=== PATIENT | female | born 1935 | race Caucasian/White ===

== ENCOUNTER 2017-01-13 14:02 | Emergency (ER) | payer MEDICARE, OTHER ==
[~2017-01-13] VITALS: Ht 157.5 cm; Wt 70.0 kg
[~2017-01-13 14:02] MED LIST: LEVO75TA5; NITR-53; NYQUIL; ZOLP10TA5
[2017-01-13 14:12] VITALS: Ht 157.5 cm; Wt 70.0 kg
[2017-01-13] MEDS ORDERED: morphine 4 MG/ML VIAL IM STA (14:51)
--- NOTE | 2017-01-13 16:47 | RADRPT ---
PROCEDURE: Left hip series CLINICAL INDICATION: Left hip pain TECHNIQUE: AP and frog-leg lateral views of the left hip are submitted COMPARISON: None FINDINGS: The left hip appears aligned without evidence of fractures, dislocations or osteolytic lesions. Boni tabulum appears intact.. IMPRESSION: Normal RPTAT: GG .Vamsi Sheikh MD, Date Time Electronically viewed and signed by .Vamsi Sheikh MD, on 01/13/2017 16:47 .L/
--- NOTE | 2017-01-13 16:48 | RADRPT ---
PROCEDURE: XR Femur. CLINICAL INDICATION: Pain. TECHNIQUE: AP and lateral views of the left femur were obtained. COMPARISON: No prior studies are available for comparison. FINDINGS: There is normal mineralization and alignment. No fracture or osseous lesion is identified. There are normal joints without evidence of arthritis or effusion. The soft tissues are unremarkable. IMPRESSION: 1. Unremarkable left femur x-ray series. RPTAT: GG .Vamsi Sheikh MD, MD Date Time Electronically viewed and signed by .Vamsi Sheikh MD, on 01/13/2017 16:48 .L/
--- NOTE | 2017-01-13 16:50 | RADRPT ---
PROCEDURE: XR Knee. CLINICAL INDICATION: Left knee pain. TECHNIQUE: AP, lateral, and oblique views of the left knee are available for review. COMPARISON: None available FINDINGS: there is mild osteoarthritic changes most notable at the patellofemoral compartment with subchondral cystic changes at the posterior patella. . No acute fracture or dislocation is seen. No radiopaqu e foreign body is identified. Alignment is anatomic. No joint effusion is seen. IMPRESSION: 1. Mild osteoarthritis most notable at the patellofemoral compartment. 2. No acute fracture or dislocation is seen. RPTAT: GG .Vamsi Sheikh MD, Date Time Electronically viewed and signed by .Vamsi Sheikh MD, on 01/13/2017 16:49 .L/
[2017-01-13] MEDS ORDERED: IBUPROFEN 800 MG TAB PO ONE (17:00)
[2017-01-13] MEDS ORDERED: NAPR-260 PO (17:11)
--- NOTE | 2017-01-13 17:11 | ERD ---
ER Documentation Chief Complaint Chief Complaint BIB [facility] FOR LEFT HIP LEG PAIN. CMS INTACT. DENIES ANY INJURY HPI This is an 81-year-old female who presents to the ER for evaluation of left hip and left knee pain. She denies any injury, denies any falls and states that she has had this pain for the past 5 days. The patient denies any fevers associated with this, she denies any numbness or tingling in her extremities and has not taken any medication for it. She came to the ER today for evaluation of her symptoms. ROS All systems reviewed and are negative except as per history of present illness. Medications Home Meds Reported Medications Zolpidem Tartrate* (Zolpidem Tartrate*) 10 Mg Tablet 07/29/09 Levothyroxine Sodium* (Levothyroxine Sodium*) 75 Mcg Tablet 07/29/09 Nitrofurantoin Macrocrystal (Nitrofurantoin) 100 Mg Capsule 07/29/09 Nyquil 07/29/09 Allergies Allergies: Coded Allergies: No Known Drug Allergies (Verified Allergy, Mild, 10/13/13) PMhx/Soc History of Surgery: No Anesthesia Reaction: No Hx Neurological Disorder: No Hx Respiratory Disorders: No Hx Cardiac Disorders: Yes (htn) Hx Psychiatric Problems: No Hx Miscellaneous Medical Probl: No Hx Alcohol Use: No Hx Substance Use: No Hx Tobacco Use: No Smoking Status: Never smoker Physical Exam Vitals Vital Signs Date Time Temp Pulse Resp B/P Pulse Ox O2 Delivery O2 Flow Rate FiO2 01/13/17 14:12 98.3 80 18 157/69 99 Physical Exam Const: No acute distress Head: Atraumatic Eyes: Normal Conjunctiva ENT: Normal External Ears, Nose and Mouth. Neck: Full range of motion..~ No meningismus. Resp: Clear to auscultation bilaterally Cardio: Regular rate and rhythm, no murmurs Abd: Soft, non tender, non distended. Normal bowel sounds Skin: No petechiae or rashes Back: No midline or flank tenderness Ext: Tender to palpation over left patella, no effusion palpated, no cyanosis , or edema, palpable dorsalis pedis and posterior tibial pulse bilaterally Neur: Awake and alert Psych: Normal Mood and Affect Results 24 hrs Current Medications Medications (Trade) Dose Ordered Sig/Dianne Route PRN Reason Start Time Stop Time Status Last Admin Dose Admin Morphine Sulfate (morphine) 4 mg ONCE STAT IM 10/27/17 14:51 01/13/17 14:52 DC 01/13/17 15:02 Ibuprofen (Motrin) 800 mg ONCE ONCE PO 01/13/17 17:00 01/13/17 17:01 DC 01/13/17 17:00 Procedures/MDM X-ray Hip 2V Interpreted by me: Bones: [No fracture] Joints: [No dislocation] Foreign body: [None] X-ray Femur 2V Interpreted by me: Bones: [No fracture] Joints: [No dislocation] Foreign body: [None] X-ray Knee 3V Interpreted by me: Bones: [No fracture] Joints: [No dislocation] Foreign body: [None] This 81-year-old female presents to the ER for nontraumatic left lower extremity pain. When I evaluated this patient she had minor tenderness to palpation around the left knee. She was initially given morphine. X-rays were obtained to rule out any fractures and the x-rays of the hip, femur, and knee were obtained which does not show any sign of fracture. The patient was given Motrin due to the fact that her x-ray does read arthritis of the knee. The patient will be discharged at this time with a prescription for Naprosyn at this time. The patient and the patient's family members are comfortable with her plan of care for discharge at this time. The patient does say she is feeling better at this time, I doubt DVT she has no calf tenderness and no swelling. Departure Diagnosis: Primary Impression: Pain of left leg Additional Impression: Arthritis of left knee Condition: Stable YANDEL HOLCOMB DO Jan 13, 2017 17:11
[2017-01-13 17:27] VITALS: BP 174/82; PULSE 65; RESP 18
== END 2017-01-13 17:37 | disposition home or self-care (01) ==
LOC: E/R 14:02
DX: M17.9 Osteoarthritis of knee, unspecified (principal); I10 Essential (primary) hypertension
CPT/HCPCS: 73510; 73550; 73562; 96372; 99284; J2270

== ENCOUNTER 2017-02-27 19:26 | Emergency (ER) | payer MEDICARE, OTHER ==
[~2017-02-27] VITALS: Ht 152.4 cm; Wt 54.5 kg
[~2017-02-27 19:26] MED LIST changes: +NAPR-260 PO
[2017-02-27 19:33] VITALS: Ht 152.4 cm; Wt 54.5 kg
[2017-02-27] MEDS ORDERED: morphine 2 MG INJ IM STA (19:36)
[2017-02-27] MEDS ORDERED: ONDANSETRON (ODT) 4 MG TAB ODT STA (19:36)
--- NOTE | 2017-02-27 19:42 | ERD ---
ER Documentation Chief Complaint Chief Complaint CAROLINE [id number],BACK OF HEAD LAC,S/P FALL,LOWER BACK PAIN HPI This is an 81-year-old female with a history of osteoporosis arthritis hypertension and hypothyroidism who presents to the emergency department after she had a witnessed mechanical trip and fall just prior to arrival. The patient had been walking in her bedroom when she accidentally slipped on an article of clothing and hit the back of her head and lower back on a carpeted surface. A family member had witnessed the fall and indicated that the patient also had to hit the back of her head on the bedpost during the fall. The patient is complaining of mild headache. There was bleeding from the scalp but EMS indicated hemostasis had been controlled. The patient was not complaining of neck pain. She denies any fever shaking or chills. She is complaining of pain in her lower back which she states is exacerbated when she attempted to ambulate. She denies any pain of her upper extremities. She denies any pleuritic chest pain or pressure. She has no shortness of breath. She takes [place] for analgesia control not take any medications prior to arrival. ROS All systems reviewed and are negative except as per history of present illness. Medications Home Meds Reported Medications Gabapentin* (Gabapentin*) 100 Mg Capsule, 200 MG PO TID, #180 CAP 02/27/17 Hydrocodone/Acetaminophen ([place] 10-325 Tablet) 1 Each Tablet, 1 EACH PO Q6H, TAB 02/27/17 Mirtazapine* (Mirtazapine*) 15 Mg Tablet, 15 MG PO HS, TAB 02/27/17 Atenolol* (Atenolol*) 25 Mg Tablet, 25 MG PO DAILY, #30 TAB 02/27/17 Benazepril Hcl* (Benazepril Hcl*) 20 Mg Tablet, 20 MG PO DAILY, #30 TAB 02/27/17 Temazepam* (Temazepam*) 30 Mg Capsule, 30 MG PO HS Y for INSOMNIA, CAP 02/27/17 Levothyroxine Sodium* (Levothyroxine Sodium*) 75 Mcg Tablet, 75 MCG PO BEFORE BREAKFAST, #30 TAB 02/27/17 Discontinued Reported Medications Zolpidem Tartrate* (Zolpidem Tartrate*) 10 Mg Tablet 07/29/09 Levothyroxine Sodium* (Levothyroxine Sodium*) 75 Mcg Tablet 07/29/09 Nitrofurantoin Macrocrystal (Nitrofurantoin) 100 Mg Capsule 07/29/09 Nyquil 07/29/09 Discontinued Scripts Naproxen* (Naprosyn*) 500 Mg Tablet, 500 MG PO BID Y for PAIN AND/OR INFLAMMATION, #20 TAB Prov:YANDEL HOLCOMB DO 01/13/17 Allergies Allergies: Coded Allergies: No Known Drug Allergies (Verified Allergy, Mild, 02/27/17) PMhx/Soc History of Surgery: No Anesthesia Reaction: No Hx Neurological Disorder: No Hx Respiratory Disorders: No Hx Cardiac Disorders: Yes (htn) Hx Psychiatric Problems: No Hx Miscellaneous Medical Probl: No Hx Alcohol Use: No Hx Substance Use: No Hx Tobacco Use: No Physical Exam Vitals Vital Signs Date Time Temp Pulse Resp B/P Pulse Ox O2 Delivery O2 Flow Rate FiO2 02/27/17 21:45 98.6 70 16 147/70 95 Room Air 02/27/17 19:47 98.6 75 16 144/82 94 Room Air 02/27/17 19:33 98.6 89 18 149/94 99 Physical Exam Constitutional:Well-developed. Well-nourished. HEENT:Normocephalic. Right occipital scalp hematoma with overlying superficial abrasion 2 cm linear laceration with no involvement of the calvarium overlying the scalp hematoma. No nasal septal hematoma..Pupils were equal round reactive to light. Moist mucous membranes.No tonsillar exudates. Neck: No nuchal rigidity. No lymphadenopathy. Your cervical spine tenderness over C3-C4 with no step-offs. Respiratory: Not using accessory muscles of respiration.Lungs are clear to auscultation in the left lobe however decreased breath sounds in the right upper lobe. No rhonchi. No rales. No wheezing. Cardiovascular: Regular rate regular rhythm.No murmurs. No rubs were appreciated.S1, S2 normal. Distal pulses are palpable 2+ bilaterally. No Crepitus. No flail chest. No ecchymosis or tenderness over the right lateral chest wall. GI: Abdomen was soft. Nontender. Non Distended. No pulsatile abdominal masses or bruits. No rebound. No guarding. Bowel sounds were present and normal. Muscle skeletal: Full range of motion of both the upper and lower extremities bilaterally.Normal muscle tone.No assymetrical calf tenderness or swelling. Lower extremities are equal length and symmetrical with no internal or external rotation. Tenderness over L4-L5 with percussion. Skin: No petechia, no purpura. No lesions on the palms or the soles of the feet. No maculopapular rash. NEURO: Patient was alert, awake, orientated x3.No facial droop. Gait not observed as patient refused to ambulate.Speech had regular rate and rhythm. No focal neurological deficits. Result Diagram: 02/27/172145 Results 24 hrs Laboratory Tests Test 02/27/17 21:46 White Blood Count 9.210^3/ul Red Blood Count 3.4110^6/ul Hemoglobin 10.2g/dl Hematocrit 30.8% Mean Corpuscular Volume 90.3fl Mean Corpuscular Hemoglobin 29.9pg Mean Corpuscular Hemoglobin Concent 33.1g/dl Red Cell Distribution Width 12.4% Platelet Count 72303^3/UL Mean Platelet Volume 9.3fl Neutrophils % 80.4% Lymphocytes % 11.7% Monocytes % 5.3% Eosinophils % 1.1% Basophils % 0.8% Nucleated Red Blood Cells % 0.0/100WBC Neutrophils # 7.410^3/ul Lymphocytes # 1.110^3/ul Monocytes # 0.510^3/ul Eosinophils # 0.110^3/ul Basophils # 0.110^3/ul Nucleated Red Blood Cells # 0.010^3/ul Current Medications Medications (Trade) Dose Ordered Sig/Dianne Route PRN Reason Start Time Stop Time Status Last Admin Dose Admin Diphtheria/ Tetanus/Acell Pertussis (Adacel) 0.5 ml ONCE ONCE IM* 02/27/17 20:00 02/27/17 20:01 DC 02/27/17 20:56 Morphine Sulfate (morphine) 2 mg ONCE STAT IM 02/27/17 19:36 02/27/17 19:39 DC 02/27/17 20:54 Ondansetron HCl 4 mg 4 mg ONCE STAT ODT 02/27/17 19:36 02/27/17 19:39 DC 02/27/17 20:53 Sodium Chloride (NS) 500 ml @ 500 mls/hr Q1H STAT IV 02/27/17 21:21 02/27/17 22:20 DC 02/27/17 22:19 Procedures/MDM Patient presented to the emergency department with blunt head trauma and chest trauma. 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 There is an associated compression fracture of the L3 vertebral body with up to 40% retropulsion and soft tissue involvement extending into the anterior spinal canal there is likely severe associated central canal stenosis. I spoke with the patient's daughter and she did indicate that the patient has a history of osteoarthritis and believe she has a known lumbar fracture. However there is no previous documentation to indicate this and therefore I cannot rule out an acute spinal fracture. Immediately upon arrival had been placed in C-spine precautions. Utilizing the Nexus criteria radiographic imaging was obtained of the patient's cervical spine and there is no evidence of fractures. Therefore at this time the cervical collar was removed by myself. Vision had decreased breath sounds heard in the right lung on auscultation. Therefore obtained a chest radiograph which showed patchy infiltrates on the right side and given the patient's setting of trauma I could not rule out pulmonary contusions versus a hemorrhage. This appeared to be less likely a result of pneumonia as the patient did not have a fever and has not had any recent sick contacts and denied a productive or nonproductive cough. The patient had a 2 cm laceration over the scalp hematoma. There is no involvement of the calvarium. The wound was irrigated using high-pressure normal saline. The wound was opposed using 2 clara. The patient tolerated the procedure well. 1% lidocaine without epinephrine had been used to anesthetize the wound and a total of 3 cc. Wound length after repair was still 2 cm. Topical antimicrobial gel been bacitracin was applied to the wound as well as a dry dressing to scalp. Patient been placed in a student officer continuous pulse oximetry and IV access had been established upon arrival. She received intravenous morphine and Zofran for analgesia control. The patient was given a liter bolus of 0.9 normal saline. She was also given a tetanus toxoid update. The patient will require transfer for higher level of care to the trauma facility due to the blunt chest trauma and pulmonary contusions versus hemorrhage. The patient showed no evidence of hypoxia. This information was relayed to the family. 12 Lead EKG tracing ordered and reviewed by myself showed: Normal sinus rhythm of 70 bpm and no arrhythmia. MI interval normal. QRS duration normal. No ST segment elevation No ST segment depression. No changes consistent with acute ischemia. Critical Care: Time: 60 minutes Treatments/Evaluations: Close monitoring and treatment of unstable vital signs, cardiorespiratory, and neurologic status, while maintaining tight balance of fluid, respiratory, and cardiac interventions. Time does not include performing any of the above billable procedures. Departure Diagnosis: Primary Impression: Fall with significant injury Encounter type: initial encounter Qualified Code: W19.XXXA - Fall with significant injury, initial encounter Additional Impressions: Right pulmonary contusion Encounter type: initial encounter Qualified Code: S27.321A - Contusion of right lung, initial encounter Lumbar compression fracture Encounter type: initial encounter Lumbar vertebra fracture level: L3 Fracture type: closed Qualified Code: S32.030A - Closed compression fracture of third lumbar vertebra, initial encounter Occipital scalp laceration Encounter type: initial encounter Qualified Code: S01.01XA - Laceration of occipital scalp, initial encounter Condition: Serious SHAISTA GAN Feb 27, 2017 19:42
[2017-02-27] MEDS ORDERED: DIPHTH/TET/ACEL PERTUSS (ADULT) 0.5 ML VIAL IM* ONE (20:00)
--- NOTE | 2017-02-27 20:32 | RADRPT ---
PROCEDURE: CT Brain without contrast. CLINICAL INDICATION: Trauma TECHNIQUE: A CT of the brain was performed on a multidetector CT scanner utilizing axial imaging f rom the skull base through the vertex without IV contrast. Multiplanar reformatted images were made . Images were reviewed on a PACS workstation. The CTDIvol is 45 mGy and the DLP is 810 mGycm. DICOM images are available. One or more of the following dose reduction techniques were utilized: 1.) Automated exposure control 2.) Adjustment of the mA +/- kV according to patient's size 3.) Use of iterative reconstruction technique. COMPARISON: None FINDINGS: There is mild to moderate age appropriate diffuse cerebral volume loss with sulcal and ventricular d ilatation. No discrete extra-axial fluid collection or masses present. The ventricles are in the mid line and of normal contour and configuration. There is mild white matter disease compatible with chr onic small vessel ischemia. There is no associated mass effect. There is preservation of normal blank -white discrimination. There is no skull fracture. Debris is present in the sphenoid sinus. IMPRESSION: Mild white matter disease compatible with chronic small vessel via. No intracranial hemorrhage or sk ull fracture. .Connor Miller MD, MD Date Time Electronically viewed and signed by .Connor Miller MD, on 02/27/2017 20:32 .A/
--- NOTE | 2017-02-27 20:54 | RADRPT ---
PROCEDURE: CT Cervical Spine without contrast. CLINICAL INDICATION: Trauma TECHNIQUE: A CT of the cervical spine was performed on a multidetector CT scanner utilizing thin s ection axial images from the skull base through the thoracic inlet. Sagittal and coronal reformatte d images were made. The CTDIvol is 22 mGy and the DLP is 468 mGycm. DICOM images are available. One or more of the following dose reduction techniques were utilized: 1.) Automated exposure control 2.) Adjustment of the mA +/- kV according to patient's size 3.) Use of iterative reconstruction technique. COMPARISON: None FINDINGS: There is 3 mm retrolisthesis of C4 on C5. There is otherwise anatomic alignment spine. Vertebral bod ies have normal height. No fracture is visualized. There is mild narrowing of C5-C6 with vacuum phen omenon. The disc heights are maintained. There is mild bilateral C5-C6 foraminal stenosis secondary to uncinate process osteophytes. No other central or foraminal stenosis is present. Pedicles and pos terior elements are without fracture. Noted is a 2 mm central disc herniation at C3-C4. IMPRESSION: No fracture or step-off. Minimal retrolisthesis V4-C5. C5-C6 degenerative disc disease with vacuum phenomenon and mild bilateral foraminal stenosis. 2 mm central disc herniation C3-C4 . .Connor Miller MD, Date Time Electronically viewed and signed by .Connor Miller MD, on 02/27/2017 20:53 .A/
--- NOTE | 2017-02-27 20:58 | RADRPT ---
PROCEDURE: AP pelvis CLINICAL INDICATION: Pain status post trauma TECHNIQUE: AP pelvis COMPARISON: None available FINDINGS: Mild dextroscoliosis of the lumbar spine is present. No acute fractures or dislocations are present. The bilateral sacroiliac joints and the imaged iliac wings are normal. IMPRESSION: 1. No acute fractures or dislocations. RPTAT: HDC .Melanie Cuellar MD, Date Time Electronically viewed and signed by .Melanie Cuellar MD, on 02/27/2017 20:58 .C/
--- NOTE | 2017-02-27 20:59 | RADRPT ---
PROCEDURE: XR Chest. CLINICAL INDICATION: Trauma. TECHNIQUE: 2 frontal views of the chest. COMPARISON: Chest radiograph dated May 17, 2007. FINDINGS: The heart is within the upper limits of normal in size. There are patchy right lung opacities. No pleural effusions pneumothorax. The bones are osteopenic. Degenerative changes of the spine are present. IMPRESSION: 1. Patchy right lung opacities likely representing pulmonary contusions/hemorrhage in the setting o f trauma. Alternatively, this may represent pneumonia. RPTAT:AAJJ Carlos Randle Physician Date Time Electronically viewed and signed by Carlos Randle Physician on 02/27/2017 20:58 QL/
--- NOTE | 2017-02-27 21:07 | RADRPT ---
PROCEDURE: CT Lumbar Spine. CLINICAL INDICATION: Fall, pain TECHNIQUE: Continuous axial CT images were obtained. Sagittal and coronal reformations were creat ed from the raw axial data. The images were reviewed on a PACS workstation. The calculated radiatio n dose measures 267 mGy centimeters. The CTDI measures 10 mGy One or more of the following dose reduction techniques were used: Automated exposure control. Adjustment of the mA and/or kV according to patient size. Use of iterative reconstruction technique. COMPARISON: none FINDINGS: There are bony destructive changes involving the L3 vertebral body posteriorly and on the left, and the left L3 posterior elements. There is an associated large soft tissue mass, 12.9 by 9.2 by 5.7 cm . There is a compression deformity of the L3 vertebral body, with up to 40% height loss. There is re tropulsion of the posterior L3 vertebral body up to 5 mm into the anterior spinal canal. There is re sulting central canal stenosis, which is possibly severe, poorly defined on CT. There is a lumbar dextroscoliosis. There is mild anterolisthesis at L4-5, 5 mm. There is moderate di sc space narrowing at L1-L2 and L4-5. T12-L1: There is no disc protrusion or extrusion. There is mild bilateral facet hypertrophy. There i s no bony central canal or neural foraminal stenosis.. L1-L2: There is a moderate right-sided lateral disc osteophyte complex. There is mild bilateral face t hypertrophy. There is no significant central canal stenosis. There is mild to moderate right and m ild left foraminal stenosis.. L2-L3: There is retropulsion of the L3 vertebral body. There is moderate bilateral facet hypertrophy . There is moderate appearing central canal stenosis. There is moderate appearing bilateral foramina l stenosis.. L3-L4: There is retropulsion of the lower L3 vertebral body. There is moderate to severe bilateral f acet hypertrophy. There is moderate to severe appearing central canal stenosis with canal diameter m easuring 6 x 11 mm. There is severe bilateral foraminal stenosis.. L4-L5: There is grade 1 anterolisthesis. There is a minimal diffuse disc bulge. There is moderate bi lateral facet hypertrophy. There is moderate central canal stenosis, with canal diameter measuring 9 x 9 mm. There is severe left and moderate to severe right foraminal stenosis.. L5-S1: There is a minimal diffuse disc bulge. There is mild bilateral facet hypertrophy. There is no central canal stenosis. There is no significant foraminal stenosis.. There is no abnormal paravertebral soft tissue mass. There is colonic diverticulosis. There is trac e pelvic free fluid. IMPRESSION: 1. 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 There is an associated compression fracture of the L3 vertebral body, up to 40%, with retropulsion and soft tissue involvement extending into the anterior spinal canal. T here is likely severe associated central canal stenosis. There is also associated severe bilateral f oraminal stenosis at L3-L4. 2. Mild grade 1 anterolisthesis at L4-5. Along with disc height loss and moderate bilateral facet hy pertrophy, this produces severe left and moderate to severe right foraminal stenosis. Moderate centr al canal stenosis. 3. Moderate right lateral disc osteophyte complex and mild facet hypertrophy L1-L2, with associated mild to moderate right foraminal stenosis. 4. Lumbar dextroscoliosis. 5. Colonic diverticulosis. Trace pelvic free fluid. RPTAT: HBST .Rylan Luu MD, MD Date Time Electronically viewed and signed by .Rylan Luu MD, MD on 02/27/2017 21:07 .T/
[2017-02-27] MEDS ORDERED: SOD CHLORIDE 0.9% 500 ML IV STA (21:21)
[2017-02-27] MEDS ORDERED: BENA20TA48 PO (21:26)
[2017-02-27] MEDS ORDERED: TEMA30CA PO (21:26)
[2017-02-27] MEDS ORDERED: LEVO75TA5 PO (21:26)
[2017-02-27] MEDS ORDERED: MIRT15TA5 PO (21:27)
[2017-02-27] MEDS ORDERED: HYDR-902 PO (21:27)
[2017-02-27] MEDS ORDERED: ATEN-51 PO (21:27)
[2017-02-27] MEDS ORDERED: GABA100C14 PO (21:28)
[2017-02-27 21:56] LABS: BASOPHIL # 0.1 10^3/ul (0.0-0.1); BASOPHILS % 0.8 % (0.0-2.0); EOSINOPHILS # 0.1 10^3/ul (0.0-0.5); EOSINOPHILS % 1.1 % (0.0-7.0); HEMATOCRIT 30.8 % (37.0-47.0); HEMOGLOBIN 10.2 g/dl (12.0-16.0); LYMPHOCYTES # 1.1 10^3/ul (0.8-2.9); LYMPHOCYTES % 11.7 % (15.0-51.0); MEAN CORPUSCULAR HEMOGLOBIN 29.9 pg (29.0-33.0); MEAN CORPUSCULAR HGB CONC 33.1 g/dl (32.0-37.0); MEAN CORPUSCULAR VOLUME 90.3 fl (82.0-101.0); MEAN PLATELET VOLUME 9.3 fl (7.4-10.4); MONOCYTE # 0.5 10^3/ul (0.3-0.9); MONOCYTES % 5.3 % (0.0-11.0); NEUTROPHIL # 7.4 10^3/ul (1.6-7.5); NEUTROPHILS % 80.4 % (39.0-77.0); PLATELET COUNT 337 10^3/UL (140-415); RED BLOOD COUNT 3.41 10^6/ul (4.20-5.40); RED CELL DISTRIBUTION WIDTH 12.4 % (11.5-14.5); WHITE BLOOD COUNT 9.2 10^3/ul (4.8-10.8)
[2017-02-27 22:43] LABS: INR 1.15; PROTIME 14.9 Sec (11.9-14.9); PT RATIO 1.2
[2017-02-27 22:44] LABS: PARTIAL THROMBOPLASTIN TIME 38.1 Sec (25.0-35.0)
[2017-02-27 22:49] LABS: ALANINE AMINOTRANSFERASE 61 IU/L (13-69); ALBUMIN 2.9 g/dl (3.3-4.9); ALKALINE PHOSPHATASE 110 IU/L (42-121); AMYLASE 57 U/L (11-123); ANION GAP 10 (8-16); ASPARTATE AMINO TRANSFERASE 49 IU/L (15-46); BILIRUBIN,INDIRECT 0.2 mg/dl (0-1.1); BILIRUBIN,TOTAL 0.2 mg/dl (0.2-1.3); BLOOD UREA NITROGEN 15 mg/dl (7-20); CALCIUM 9.2 mg/dl (8.4-10.2); CARBON DIOXIDE 25 mmol/L (21-31); CHLORIDE 100 mmol/L (97-110); CREATINE KINASE 76 IU/L (23-200); GLUCOSE 101 mg/dl (70-220); POTASSIUM 4.5 mmol/L (3.5-5.1); SODIUM 130 mmol/L (135-144); TOTAL PROTEIN 6.1 g/dl (6.1-8.1)
[2017-02-27 23:01] LABS: CK-MB 0.43 ng/ml (0.0-2.4)
[2017-02-27 23:02] LABS: TROPONIN-I < 0.012 ng/ml (0.00-0.12)
[2017-02-27 23:38] VITALS: BP 106/61; PULSE 72; RESP 16; TEMP 98.6
== END 2017-02-28 00:30 | disposition short-term general hospital (02) ==
LOC: E/R 19:26
DX: S32.030A Wedge compression fracture of third lumbar vertebra, initial encounter for closed fracture (principal); S27.321A Contusion of lung, unilateral, initial encounter; I10 Essential (primary) hypertension; E03.9 Hypothyroidism, unspecified; W01.198A Fall on same level from slipping, tripping and stumbling with subsequent striking against other object, initial encounter; Y92.003 Bedroom of unspecified non-institutional (private) residence as the place of occurrence of the external cause
CPT/HCPCS: 12001; 70450; 71010; 72125; 72131; 72170; 80053; 82150; 82550; 82553; 83690; 84484; 85025; 85610; 85730; 90471; 90715; 93005; 96372; 99291; J2270; J7040